=== PATIENT | male | born 1990 | race Caucasian/White ===

== ENCOUNTER 2019-11-30 06:49 | Emergency (ER) | payer OTHER, SELFPAY ==
[~2019-11-30] VITALS: Ht 167.6 cm; Wt 89.8 kg
[2019-11-30 06:49] VITALS: BP 150/90; Ht 167.6 cm; Wt 89.8 kg
== END 2019-11-30 07:35 | disposition home or self-care (01) ==
LOC: ED 06:49
DX: U07.1 COVID-19 (principal)
CPT/HCPCS: U0003-CS